=== PATIENT | male | born 1970 | race Two or more races ===

== ENCOUNTER → 2022-09-02 | Outpatient (CLI) | payer OTHER ==
[~2022-09-02] MED LIST: ALTACE PO; COLCRYS0.6 MG PO; IBUP800 PO; METPRE4DP PO; RAMI5 PO; Ramipril10 MG PO; TRIA80TC TOP
== END ==
LOC: PLD 11:46 → LAB SHORT 11:46
DX: D22.5 Melanocytic nevi of trunk (principal)
CPT/HCPCS: 88305

== ENCOUNTER 2024-08-30 04:56 | Emergency (ER) | payer OTHER ==
[~2024-08-30] VITALS: Ht 185.4 cm; Wt 108.9 kg
[2024-08-30] MEDS ORDERED: Tetanus,Diphtheria Toxd Ped/Pf 0.5 ML VIAL IM ONE (06:15)
[2024-08-30] MEDS ORDERED: Diphth,Pertuss(Acell),Tet Vac 0.5 ML VIAL IM ONE (06:45)
[2024-08-30] MEDS ORDERED: Ibuprofen 600 MG Tab PO ONE (07:35)
[2024-08-30 07:40] VITALS: BP 132/88
== END 2024-08-30 08:09 | disposition home or self-care (01) ==
LOC: ER 04:56
DX: S01.01XA Laceration without foreign body of scalp, initial encounter (principal); R55 Syncope and collapse; I10 Essential (primary) hypertension; W18.30XA Fall on same level, unspecified, initial encounter; Z79.899 Other long term (current) drug therapy
CPT/HCPCS: 12002; 70450; 90471; 90702; 90715; 93005; 93010; 93242; 99284-25; A9270

== ENCOUNTER 2025-09-15 09:38 | Emergency (ER) | payer BC ==
[~2025-09-15] VITALS: Ht 185.4 cm; Wt 113.4 kg
[2025-09-15] VITALS (8 sets, daily range): BP systolic 140–163; BP diastolic 61–78
[2025-09-15] MEDS ORDERED: Lidocaine/Tetracaine/Epinephr 3 ML GEL SYRINGE TOP ONE (10:25)
[2025-09-15] MEDS ORDERED: Ondansetron 4 MG SoluTab SL ONE (10:25)
[2025-09-15] MEDS ORDERED: ALLOPURINOL100 M1 PO (11:26)
[2025-09-15] MEDS ORDERED: ATORVASTATIN CA20 MG PO (11:26)
[2025-09-15] MEDS ORDERED: HYDR1TAB94 PO (12:20)
[2025-09-15] MEDS ORDERED: CEPH500 PO (12:20)
[2025-09-15] MEDS ORDERED: Lidocaine HCL 1% 10 ML MDV ONE (13:12)
[2025-09-15] MEDS ORDERED: Bupivacaine HCl 2.5 MG/ML 10ML P/F Injection ONE (13:13)
[2025-09-15] MEDS ORDERED: CeFAZolin Sodium 2,000 MG in NS 100 ML IV ONE (14:05)
[2025-09-15] MEDS ORDERED: Albuterol 2.5 MG/3 ML VIAL INH PRN (14:20)
[2025-09-15] MEDS ORDERED: FentaNYL Citrate 50 MCG/ML 2 ML Injection IV PRN ×4 (14:20→15:50)
[2025-09-15] MEDS ORDERED: Ondansetron HCl 2 MG / ML 2ML Vial IV PRN ×2 (14:20→15:50)
[2025-09-15] MEDS ORDERED: HYDROmorphone HCl/Pf 1MG SYR IV PRN ×2 (14:20→15:50)
[2025-09-15] MEDS ORDERED: CeFAZolin 1000MG in D5W 50 ML IV SCH (14:55)
[2025-09-15] MEDS ORDERED: FentaNYL Citrate 50 MCG/ML 5 ML Injection ONE (14:56)
--- NOTE | 2025-09-15 14:56 | NUR ---
PT TRANSPORTED TO [facility] FROM ED. DRESSING TO LEFT HAND C/D/I. LEFT ARM ELEVATED ON PILLOW. AGREES WITH PLANNED SURGERY. History, Chart, Medications and Allergies reviewed before start of procedure. NPO SINCE COFFEE WITH CREAM AT 0700, ANESTHESIA INFORMED.
[2025-09-15] MEDS ORDERED: Metoclopramide HCl 5MG / ML 2ML Vial ONE (14:57)
[2025-09-15] MEDS ORDERED: Ondansetron HCl 2 MG / ML 2ML Vial ONE (14:57)
[2025-09-15] MEDS ORDERED: CeFAZolin Sodium 1,000 MG in NS 50 ML IV ONE (15:00)
[2025-09-15] MEDS ORDERED: CeFAZolin Sodium 1000 mg Vial ONE (15:08)
[2025-09-15] MEDS ORDERED: Morphine Sulfate 4 MG/1 ML Injection IV PRN (15:45)
[2025-09-15] MEDS ORDERED: Metoclopramide HCl 5MG / ML 2ML Vial IV PRN (15:50)
[2025-09-15] MEDS ORDERED: FentaNYL Citrate 50 MCG/ML 2 ML Injection ONE ×2 (15:50→17:24)
[2025-09-15] MEDS ORDERED: Phenylephrine HCl 100 MCG/ML-NS 10MLSYR (1MG/10ML) ONE (16:44)
[2025-09-15] MEDS ORDERED: Rocuronium Bromide 10 MG/ML 5ML Injection IV ONE (16:44)
[2025-09-15] MEDS ORDERED: Dexamethasone Sod Phos 10 MG/ML 1ML VIAL ONE (17:56)
[2025-09-15] MEDS ORDERED: HYDROmorphone HCl/Pf 1MG SYR ONE (18:36)
== END 2025-09-15 14:25 | disposition home or self-care (01) ==
LOC: ER 09:38
DX: S64.12XA Injury of median nerve at wrist and hand level of left arm, initial encounter (principal); I10 Essential (primary) hypertension; W26.0XXA Contact with knife, initial encounter; Z79.899 Other long term (current) drug therapy
CPT/HCPCS: 73100; 99284-25; A9270; C1889; J0690; J1100; J1171; J2003; J2371; J2405; J2704; J2765; J3010; J7120